=== PATIENT | female | born 1935 | race Caucasian/White ===

== ENCOUNTER → 2016-11-20 | Outpatient (CLI) | payer MEDICARE, OTHER ==
[~2016-11-20] MED LIST: AMLO5TAB2 PO; ATEN50TA80 PO; CLON0.1T PO; LEVO75TA50 PO; LISI40TA PO; NOR5T PO; [UNRECOGNIZED DRUG - CODE] PO
[2016-11-20 13:19] LABS: Urine RBC None Seen /hpf (0 - 4)
[2016-11-20 13:46] LABS: INR 1.03 (0.9-1.15); Partial Thromboplastin Time 27.7 sec (22.64-33.71); Prothrombin Time 10.6 sec (9.37-12.3)
[2016-11-20 13:48] LABS: Basophils # (auto) 0 uL; Basophils % (auto) 0.4 % (0.0-2.0); Eosinophils # (auto) 0 uL; Eosinophils % (auto) 0.1 % (0.0-7.0); Hematocrit 47.7 % (36.0-46.0); Hemoglobin 15.1 g/dL (12.2-16.2); Lymphocytes # (auto) 1.9 uL; Lymphocytes % (auto) 19.7 % (10.0-50.0); Mean Corpuscular Hemoglobin 30.7 pg (28.0-32.0); Mean Corpuscular Hgb Conc. 31.6 g/dL (32.0-36.0); Mean Corpuscular Volume 97.2 fL (80.0-100.0); Mean Platelet Volume 9.2 fL (7.4-10.4); Monocytes # (auto) 0.6 uL; Monocytes % (auto) 6.8 % (0.0-12.0); Platelet Count (auto) 331 10^3/uL (140-450); Red Cell Distribution Width 13.3 % (11.6-16.0); White Blood Cell 9.6 10^3/uL (4.4-10.8)
[2016-11-20 14:14] LABS: Potassium 4.3 mmol/L (3.5-5.1)
[2016-11-20 14:20] LABS: Urine Bilirubin Negative (Negative); Urine Blood Negative /uL (Negative); Urine Color Yellow (Yellow); Urine Glucose Normal (Normal); Urine Ketone Negative (Negative); Urine Nitrite Negative (Negative); Urine Squamous Epithelial Cell FEW /hpf (<5); Urine Urobilinogen Normal (Negative); Urine pH 7.5 (5.0-8.0)
[2016-11-20 15:16] LABS: Albumin 3.8 g/dL (3.4-5.0); BUN/Creatinine Ratio 25.6; Bilirubin, Total 0.6 mg/dL (0.2-1.0); Calcium 9.4 mg/dL (8.5-10.1); Total Protein 7.8 g/dL (6.4-8.2)
== END | disposition home or self-care (01) ==
LOC: LAB 12:57
PROVIDERS: ATTEND Orthopaedic Surgery
DX: M24.562 Contracture, left knee (principal); M24.662 Ankylosis, left knee; M22.42 Chondromalacia patellae, left knee; R79.1 Abnormal coagulation profile
CPT/HCPCS: 36415; 80053; 81001; 85025; 85610; 85730; 86850; 86900; 86901

== ENCOUNTER 2018-07-19 20:01 | Inpatient (IN) | payer MEDICARE, OTHER ==
[~2018-07-19] VITALS: Ht 149.9 cm; Wt 51.0 kg
[~2018-07-19 20:01] MED LIST changes: +AMLO5TAB13 PO; -AMLO5TAB2 PO; -ATEN50TA80 PO; -CLON0.1T PO; +HYDR-4683 PO; -NOR5T PO; -[UNRECOGNIZED DRUG - CODE] PO
[2018-07-19 21:24] LABS: Basophils # (auto) 0 uL; Eosinophils # (auto) 0 uL; Mean Corpuscular Hemoglobin 34.3 pg (28.0-32.0); Monocytes # (auto) 0.4 uL; Monocytes % (auto) 5.9 % (0.0-12.0)
[2018-07-19 21:26] LABS: Basophils % (auto) 0.5 % (0.0-2.0); Hematocrit 44.3 % (36.0-46.0); Lymphocytes # (auto) 0.9 uL; Lymphocytes % (auto) 14.1 % (10.0-50.0); Mean Corpuscular Hgb Conc. 33.9 g/dL (32.0-36.0); Mean Corpuscular Volume 101.2 fL (80.0-100.0); Neutrophils # (auto) 4.9 uL; Neutrophils % (auto) 79.5 % (37.0-80.0); Nucleated Red Blood Cells % 0.1 %; Platelet Count (auto) 224 10^3/uL (140-450); Red Blood Cells 4.37 10^6/uL (4.0-5.20); Red Cell Distribution Width 13.8 % (11.8-14.3); White Blood Cell 6.2 10^3/uL (4.4-10.8)
[2018-07-19 21:33] LABS: Alanine Aminotransferase 25 U/L (13-56); Albumin 3.6 g/dL (3.4-5.0); Alkaline Phosphatase 89 U/L (45-117); Anion Gap 4 (5-15); Aspartate Aminotransferase 23 U/L (15-37); BUN/Creatinine Ratio 24.5; Bilirubin, Total 0.6 mg/dL (0.2-1.0); Blood Urea Nitrogen 24 mg/dL (7-18); Calcium 8.6 mg/dL (8.5-10.1); Carbon Dioxide 25 mmol/L (21-32); Chloride 101 mmol/L (98-107); GFR African American 69 mL/min; GFR Non-African American 57 mL/min; Glucose 109 mg/dL (74-106); Magnesium 2.2 mg/dL (1.6-2.6); Potassium 4.4 mmol/L (3.5-5.1); Sodium 130 mmol/L (136-145); Total Protein 7.4 g/dL (6.4-8.2)
[2018-07-19] MEDS ORDERED: FUROSEMIDE 20 MG/2 ML VIAL IV ONE (23:45)
[2018-07-20] VITALS (7 sets, daily range): BP systolic 93–121; BP diastolic 54–95
[2018-07-20] MEDS ORDERED: ACETAMINOPHEN 500 MG TAB PO PRN ×2 (00:15→01:45)
[2018-07-20 00:18] LABS: Urine Bacteria NONE SEEN /hpf (None Seen); Urine Blood Negative /uL (Negative); Urine Specific Gravity 1.007 (1.001-1.035); Urine WBC 1 /hpf (0 - 5)
[2018-07-20] MEDS ORDERED: ONDANSETRON HCL 4 MG/2 ML VIAL IV PRN (01:45)
[2018-07-20] MEDS ORDERED: traMADol HCL 50 MG TAB PO PRN (01:45)
[2018-07-20] MEDS ORDERED: ASPI81TA27 PO (04:12)
[2018-07-20] MEDS: LEVOTHYROXINE SODIUM 25 MCG TAB PO SCH (06:46)
[2018-07-20 07:26] LABS: Basophils # (auto) 0 uL; Eosinophils # (auto) 0 uL; Monocytes # (auto) 0.5 uL
[2018-07-20 07:27] LABS: Basophils % (auto) 0.8 % (0.0-2.0); Eosinophils % (auto) 0.2 % (0.0-7.0); Hematocrit 42.2 % (36.0-46.0); Hemoglobin 14.4 g/dL (12.2-16.2); Lymphocytes # (auto) 1.3 uL; Lymphocytes % (auto) 26.6 % (10.0-50.0); Mean Corpuscular Hemoglobin 34.1 pg (28.0-32.0); Mean Corpuscular Volume 100.2 fL (80.0-100.0); Monocytes % (auto) 10.5 % (0.0-12.0); Neutrophils % (auto) 61.9 % (37.0-80.0); Nucleated Red Blood Cells % 0.2 %; Platelet Count (auto) 222 10^3/uL (140-450); Red Blood Cells 4.21 10^6/uL (4.0-5.20); Red Cell Distribution Width 13.6 % (11.8-14.3); White Blood Cell 4.9 10^3/uL (4.4-10.8)
[2018-07-20 07:42] LABS: Partial Thromboplastin Time 26.4 sec (23.78-33.04); Prothrombin Time 10.7 sec (9.27-12.13)
[2018-07-20 07:50] LABS: Cholesterol 199 mg/dL (< 200); HDL Cholesterol 54 mg/dL (40-59); LDL Cholesterol 123 mg/dL (< 100); Triglycerides 183 mg/dL (< 150)
[2018-07-20 07:51] LABS: Albumin 3.5 g/dL (3.4-5.0); BUN/Creatinine Ratio 21.3; Bilirubin, Total 0.8 mg/dL (0.2-1.0); Calcium 8.8 mg/dL (8.5-10.1); Potassium 3.6 mmol/L (3.5-5.1)
[2018-07-20] MEDS: ASPirin-EC 81 mg tab PO SCH (09:37)
[2018-07-20] MEDS: METOPROLOL SUCCINATE XL 50 MG TAB PO SCH (09:40)
[2018-07-20] MEDS: amLODIPine BESYLATE 5 MG TAB PO SCH (09:40)
[2018-07-20] MEDS: HCTZ 25 MG TAB PO SCH (09:42)
[2018-07-20] MEDS ORDERED: FUROSEMIDE 20 MG TAB PO ONE (13:00)
[2018-07-20] MEDS ORDERED: WARFARIN SODIUM 2.5 MG TAB PO ONE (17:00)
[2018-07-20] MEDS: RIVAROXABAN 15 MG TAB PO SCH (18:35)
[2018-07-20] MEDS ORDERED: LORazepam 2MG/ML-1ML VIAL IV PRN ×2 (21:00)
[2018-07-20] MEDS ORDERED: HYDROcodone-ACET 5/325MG TAB PO PRN (21:00)
[2018-07-20] MEDS: ATORVASTATIN 20 MG TAB PO SCH (21:08)
[2018-07-20] MEDS: LEVETIRACETAM 500 MG TAB PO SCH (21:34)
[2018-07-21 05:16] VITALS: BP 111/81
[2018-07-21] MEDS: LEVOTHYROXINE SODIUM 25 MCG TAB PO SCH (06:20)
[2018-07-21 06:34] LABS: Basophils # (auto) 0.1 uL; Monocytes # (auto) 0.6 uL; Neutrophils # (auto) 3.4 uL
[2018-07-21 06:36] LABS: Basophils % (auto) 1.5 % (0.0-2.0); Eosinophils # (auto) 0 uL; Eosinophils % (auto) 0.7 % (0.0-7.0); Hematocrit 42.2 % (36.0-46.0); Hemoglobin 14.8 g/dL (12.2-16.2); Lymphocytes # (auto) 1.3 uL; Lymphocytes % (auto) 24.7 % (10.0-50.0); Mean Corpuscular Hgb Conc. 35.1 g/dL (32.0-36.0); Mean Corpuscular Volume 99.4 fL (80.0-100.0); Monocytes % (auto) 10.6 % (0.0-12.0); Neutrophils % (auto) 62.5 % (37.0-80.0); Nucleated Red Blood Cells % 0.4 %; Platelet Count (auto) 232 10^3/uL (140-450); Red Blood Cells 4.25 10^6/uL (4.0-5.20); Red Cell Distribution Width 13.6 % (11.8-14.3); White Blood Cell 5.4 10^3/uL (4.4-10.8)
[2018-07-21 06:39] LABS: Mean Corpuscular Hemoglobin 34.6 pg (28.0-32.0)
[2018-07-21 06:44] LABS: INR 1.24 (0.9-1.15); Partial Thromboplastin Time 36.2 sec (23.78-33.04); Prothrombin Time 13.1 sec (9.27-12.13)
[2018-07-21 06:53] LABS: Albumin 3.1 g/dL (3.4-5.0); BUN/Creatinine Ratio 26.4; Bilirubin, Total 0.9 mg/dL (0.2-1.0); Calcium 8.4 mg/dL (8.5-10.1); Total Protein 6.7 g/dL (6.4-8.2)
[2018-07-21 06:56] LABS: Potassium 3.8 mmol/L (3.5-5.1)
[2018-07-21 09:00] VITALS: BP 149/80
[2018-07-21] MEDS: ASPirin-EC 81 mg tab PO SCH (09:54)
[2018-07-21] MEDS: FUROSEMIDE 20 MG TAB PO SCH (09:55)
[2018-07-21] MEDS: POTASSIUM CHL 10 Meq TABLET PO SCH (09:55)
[2018-07-21] MEDS: METOPROLOL SUCCINATE XL 50 MG TAB PO SCH (09:56)
[2018-07-21] MEDS: HCTZ 25 MG TAB PO SCH (09:56)
[2018-07-21] MEDS: LEVETIRACETAM 500 MG TAB PO SCH ×2 (09:56→22:32)
[2018-07-21] MEDS: amLODIPine BESYLATE 5 MG TAB PO SCH (09:57)
[2018-07-21 13:00] VITALS: BP 110/82
[2018-07-21 17:00] VITALS: BP 105/68
[2018-07-21] MEDS: RIVAROXABAN 15 MG TAB PO SCH (18:31)
[2018-07-21 21:52] VITALS: BP 102/78
[2018-07-21] MEDS: ATORVASTATIN 20 MG TAB PO SCH (22:32)
[2018-07-22 05:21] VITALS: BP 106/72
[2018-07-22 06:29] LABS: Basophils # (auto) 0 uL; Eosinophils # (auto) 0 uL; Eosinophils % (auto) 0.5 % (0.0-7.0); Red Cell Distribution Width 13.3 % (11.8-14.3)
[2018-07-22 06:30] LABS: Basophils % (auto) 0.9 % (0.0-2.0); Hematocrit 43.1 % (36.0-46.0); Lymphocytes # (auto) 1.4 uL; Lymphocytes % (auto) 26.4 % (10.0-50.0); Mean Corpuscular Hemoglobin 34.5 pg (28.0-32.0); Mean Corpuscular Hgb Conc. 34.7 g/dL (32.0-36.0); Mean Corpuscular Volume 99.5 fL (80.0-100.0); Monocytes # (auto) 0.6 uL; Monocytes % (auto) 11.8 % (0.0-12.0); Neutrophils # (auto) 3.2 uL; Neutrophils % (auto) 60.4 % (37.0-80.0); Platelet Count (auto) 226 10^3/uL (140-450); Red Blood Cells 4.33 10^6/uL (4.0-5.20); White Blood Cell 5.3 10^3/uL (4.4-10.8)
[2018-07-22] MEDS: LEVOTHYROXINE SODIUM 25 MCG TAB PO SCH (06:33)
[2018-07-22 06:53] LABS: Albumin 3.1 g/dL (3.4-5.0); Calcium 8.6 mg/dL (8.5-10.1); Potassium 3.3 mmol/L (3.5-5.1)
[2018-07-22 07:02] LABS: BUN/Creatinine Ratio 34.7; Bilirubin, Total 0.8 mg/dL (0.2-1.0); Total Protein 6.7 g/dL (6.4-8.2)
[2018-07-22 09:00] VITALS: BP 110/80
[2018-07-22] MEDS: amLODIPine BESYLATE 5 MG TAB PO SCH (09:58)
[2018-07-22] MEDS: POTASSIUM CHL 10 Meq TABLET PO SCH (09:58)
[2018-07-22] MEDS: LEVETIRACETAM 500 MG TAB PO SCH (09:58)
[2018-07-22] MEDS: HCTZ 25 MG TAB PO SCH (09:59)
[2018-07-22] MEDS: ASPirin-EC 81 mg tab PO SCH (09:59)
[2018-07-22] MEDS: FUROSEMIDE 20 MG TAB PO SCH (09:59)
[2018-07-22] MEDS: METOPROLOL SUCCINATE XL 50 MG TAB PO SCH (10:00)
[2018-07-22 15:20] VITALS: BP 110/80
== END 2018-07-22 16:00 | disposition home or self-care (01) | DRG 292 ==
LOC: ER 20:03 → TELE 20:04 → TELE-WESTW 07-20 02:17
PROVIDERS: ADMIT Nurse Practitioner Family; ATTEND Family Medicine
DX: I11.0 Hypertensive heart disease with heart failure (principal); I48.92 Unspecified atrial flutter; E87.1 Hypo-osmolality and hyponatremia; G40.89 Other seizures; R44.2 Other hallucinations; G45.9 Transient cerebral ischemic attack, unspecified; I50.41 Acute combined systolic (congestive) and diastolic (congestive) heart failure; R40.4 Transient alteration of awareness; G43.909 Migraine, unspecified, not intractable, without status migrainosus; Z88.6 Allergy status to analgesic agent; Z88.3 Allergy status to other anti-infective agents; E78.00 Pure hypercholesterolemia, unspecified; E89.0 Postprocedural hypothyroidism; I48.91 Unspecified atrial fibrillation; I50.9 Heart failure, unspecified; M19.90 Unspecified osteoarthritis, unspecified site; Z82.62 Family history of osteoporosis; N28.9 Disorder of kidney and ureter, unspecified; R79.1 Abnormal coagulation profile; Z80.7 Family history of other malignant neoplasms of lymphoid, hematopoietic and related tissues; Z82.49 Family history of ischemic heart disease and other diseases of the circulatory system; Z83.3 Family history of diabetes mellitus; Z86.73 Personal history of transient ischemic attack (TIA), and cerebral infarction without residual deficits; Z96.659 Presence of unspecified artificial knee joint; Z79.82 Long term (current) use of aspirin; Z79.899 Other long term (current) drug therapy
CPT/HCPCS: 36415; 70450; 70551; 71045; 72125; 80053; 80061; 81001; 83735; 83880; 84443; 84484; 85025; 85379; 85610; 85730; 93306; 93886; 93970; 94761; 95819; 96374

== ENCOUNTER 2018-09-30 17:52 | Inpatient (IN) | payer MEDICARE, OTHER ==
[~2018-09-30] VITALS: Ht 149.9 cm; Wt 47.8 kg
[~2018-09-30 17:52] MED LIST changes: +ASPI81TA27 PO; -HYDR-4683 PO; -LISI40TA PO
[2018-09-30] MEDS ORDERED: IPRATROPIUM BROM 0.5 MG/2.5ML INH SOL NEB ONE (18:00)
[2018-09-30] MEDS ORDERED: ALBUTEROL SULF 2.5 MG/0.5ML(0.5%) NEB SOLN NEB ONE ×2 (18:00→21:30)
[2018-09-30 18:19] LABS: Eosinophils # (auto) 0 uL; Eosinophils % (auto) 0.5 % (0.0-7.0); Lymphocytes # (auto) 0.6 uL; Neutrophils # (auto) 5.6 uL; Red Cell Distribution Width 12.6 % (11.8-14.3)
[2018-09-30 18:20] LABS: Basophils # (auto) 0 uL; Basophils % (auto) 0.7 % (0.0-2.0); Hematocrit 43.5 % (36.0-46.0); Hemoglobin 14.8 g/dL (12.2-16.2); Lymphocytes % (auto) 8.2 % (10.0-50.0); Mean Corpuscular Hemoglobin 34.6 pg (28.0-32.0); Mean Corpuscular Volume 101.7 fL (80.0-100.0); Monocytes # (auto) 0.7 uL; Monocytes % (auto) 9.8 % (0.0-12.0); Neutrophils % (auto) 80.8 % (37.0-80.0); Platelet Count (auto) 223 10^3/uL (140-450); Red Blood Cells 4.28 10^6/uL (4.0-5.20)
[2018-09-30 18:33] LABS: Alanine Aminotransferase 28 U/L (13-56); Albumin 3.3 g/dL (3.4-5.0); Anion Gap 10 (5-15); Aspartate Aminotransferase 24 U/L (15-37); BUN/Creatinine Ratio 17.4; Blood Urea Nitrogen 16 mg/dL (7-18); Calcium 8.7 mg/dL (8.5-10.1); Carbon Dioxide 25 mmol/L (21-32); Chloride 98 mmol/L (98-107); GFR African American 75 mL/min; GFR Non-African American 62 mL/min; Glucose 116 mg/dL (74-106); Potassium 4.3 mmol/L (3.5-5.1); Sodium 133 mmol/L (136-145)
[2018-09-30 18:38] LABS: Alkaline Phosphatase 92 U/L (45-117); Bilirubin, Total 0.7 mg/dL (0.2-1.0); Total Protein 7.5 g/dL (6.4-8.2)
[2018-09-30] MEDS ORDERED: methylPREDNISolone SOD SUCC 125 MG/2 ML VL IV ONE (19:00)
[2018-09-30] MEDS ORDERED: SODIUM CHLORIDE 0.9% 1,000 ML IV ONE (19:00)
[2018-09-30] MEDS ORDERED: LEVOFLOXACIN 500MG 100 ML IV ONE (21:00)
[2018-09-30] MEDS ORDERED: ONDANSETRON HCL 4 MG/2 ML VIAL IV PRN (21:30)
[2018-09-30] MEDS ORDERED: ACETAMINOPHEN 325 MG TAB PO PRN (21:30)
[2018-09-30] MEDS: IPRATROPIUM BROM 0.5 MG/2.5ML INH SOL NEB PRN (21:56)
[2018-09-30] MEDS: ALBUTEROL SULF 2.5 MG/0.5ML(0.5%) NEB SOLN NEB PRN (21:57)
[2018-09-30 23:10] VITALS: BP 128/87
[2018-09-30] MEDS: ATORVASTATIN 20 MG TAB PO SCH (23:47)
[2018-09-30] MEDS: methylPREDNISolone SOD SUCC 125 MG/2 ML VL IV SCH (23:48)
[2018-09-30] MEDS: FAMOTIDINE 20 MG TAB PO SCH (23:48)
[2018-10-01] VITALS (9 sets, daily range): BP systolic 102–129; BP diastolic 65–96
[2018-10-01] MEDS ORDERED: LOSA-46 PO (00:49)
[2018-10-01] MEDS ORDERED: RIV15T PO (00:49)
[2018-10-01] MEDS ORDERED: METO-169 PO (00:49)
[2018-10-01] MEDS ORDERED: FURO20TA3 PO (00:49)
[2018-10-01] MEDS: IPRATROPIUM BROM 0.5 MG/2.5ML INH SOL NEB PRN ×3 (04:55→18:46)
[2018-10-01] MEDS: ALBUTEROL SULF 2.5 MG/0.5ML(0.5%) NEB SOLN NEB PRN ×3 (04:56→18:46)
[2018-10-01 05:21] LABS: Basophils # (auto) 0 uL; Basophils % (auto) 0.5 % (0.0-2.0); Eosinophils # (auto) 0 uL; Eosinophils % (auto) 0.1 % (0.0-7.0); Hematocrit 39.5 % (36.0-46.0); Hemoglobin 13.3 g/dL (12.2-16.2); Lymphocytes # (auto) 0.3 uL; Lymphocytes % (auto) 4.5 % (10.0-50.0); Mean Corpuscular Hgb Conc. 33.7 g/dL (32.0-36.0); Monocytes # (auto) 0.1 uL; Monocytes % (auto) 1.6 % (0.0-12.0); Neutrophils # (auto) 5.7 uL; Neutrophils % (auto) 93.3 % (37.0-80.0); Nucleated Red Blood Cells % 0.1 %; Platelet Count (auto) 202 10^3/uL (140-450); Red Blood Cells 3.91 10^6/uL (4.0-5.20); Red Cell Distribution Width 12.5 % (11.8-14.3); White Blood Cell 6.1 10^3/uL (4.4-10.8)
[2018-10-01 05:38] LABS: Calcium 8.2 mg/dL (8.5-10.1); Potassium 3.6 mmol/L (3.5-5.1)
[2018-10-01 05:41] LABS: BUN/Creatinine Ratio 16.3; Bilirubin, Total 0.8 mg/dL (0.2-1.0); Total Protein 6.7 g/dL (6.4-8.2)
[2018-10-01] MEDS: LEVOTHYROXINE SODIUM 25 MCG TAB PO SCH (06:24)
[2018-10-01] MEDS ORDERED: FUROSEMIDE 20 MG TAB PO SCH (10:00)
[2018-10-01] MEDS: amLODIPine BESYLATE 5 MG TAB PO SCH (10:00)
[2018-10-01] MEDS: LOSARTAN POTASSIUM 50 MG TAB PO SCH (10:00)
[2018-10-01] MEDS ORDERED: ENOXAPARIN SOD 30 MG/0.3 ML SYRINGE SC SCH (10:00)
[2018-10-01] MEDS: FAMOTIDINE 20 MG TAB PO SCH (10:52)
[2018-10-01] MEDS: LEVOFLOXACIN 250MG 50 ML IV SCH (10:53)
[2018-10-01] MEDS: methylPREDNISolone SOD SUCC 125 MG/2 ML VL IV SCH ×2 (10:53→22:06)
[2018-10-01] MEDS: RIVAROXABAN 15 MG TAB PO SCH (17:08)
[2018-10-01] MEDS: ATORVASTATIN 20 MG TAB PO SCH ×2 (22:00→22:06)
[2018-10-01] MEDS: TEMAZEPAM 15 MG CAP PO PRN (22:21)
[2018-10-02 05:28] VITALS: BP 126/89
[2018-10-02] MEDS: LEVOTHYROXINE SODIUM 25 MCG TAB PO SCH (06:59)
[2018-10-02 09:04] VITALS: BP 135/91
[2018-10-02] MEDS: IPRATROPIUM BROM 0.5 MG/2.5ML INH SOL NEB PRN (09:56)
[2018-10-02] MEDS: ALBUTEROL SULF 2.5 MG/0.5ML(0.5%) NEB SOLN NEB PRN (09:56)
[2018-10-02] MEDS ORDERED: FUROSEMIDE 40 MG/4 ML VIAL IV ONE (10:15)
[2018-10-02] MEDS: FAMOTIDINE 20 MG TAB PO SCH (10:22)
[2018-10-02] MEDS: amLODIPine BESYLATE 5 MG TAB PO SCH (10:22)
[2018-10-02] MEDS: LOSARTAN POTASSIUM 50 MG TAB PO SCH (10:23)
[2018-10-02] MEDS: methylPREDNISolone SOD SUCC 125 MG/2 ML VL IV SCH ×2 (10:25→21:18)
[2018-10-02] MEDS: LEVOFLOXACIN 250MG 50 ML IV SCH (10:31)
[2018-10-02] MEDS ORDERED: SODIUM CHLORIDE 0.9 % NEB SOLN 3ML NEB ONE (10:52)
[2018-10-02] MEDS ORDERED: SUMAtriptan SUCCINATE 25 MG TAB PO ONE (11:00)
[2018-10-02 13:00] VITALS: BP 125/84
[2018-10-02] MEDS: IPRATROPIUM BROM 0.5 MG/2.5ML INH SOL NEB SCH ×3 (14:13→21:59)
[2018-10-02] MEDS: ALBUTEROL SULF 2.5 MG/0.5ML(0.5%) NEB SOLN NEB SCH ×3 (14:13→21:59)
[2018-10-02 17:04] VITALS: BP 125/88
[2018-10-02] MEDS: RIVAROXABAN 15 MG TAB PO SCH (19:13)
[2018-10-02] MEDS: ATORVASTATIN 20 MG TAB PO SCH (21:18)
[2018-10-02] MEDS: TEMAZEPAM 15 MG CAP PO PRN (21:19)
[2018-10-02 22:18] VITALS: BP 138/98
[2018-10-03] MEDS: ALBUTEROL SULF 2.5 MG/0.5ML(0.5%) NEB SOLN NEB SCH ×6 (02:24→22:33)
[2018-10-03] MEDS: IPRATROPIUM BROM 0.5 MG/2.5ML INH SOL NEB SCH ×6 (02:24→22:33)
[2018-10-03 05:13] VITALS: BP 104/67
[2018-10-03] MEDS: LEVOTHYROXINE SODIUM 25 MCG TAB PO SCH (06:07)
[2018-10-03 09:00] VITALS: BP 107/83
[2018-10-03] MEDS: FUROSEMIDE 40 MG/4 ML VIAL IV SCH (10:00)
[2018-10-03] MEDS: FAMOTIDINE 20 MG TAB PO SCH (10:39)
[2018-10-03] MEDS: LEVOFLOXACIN 250MG 50 ML IV SCH (10:47)
[2018-10-03] MEDS: methylPREDNISolone SOD SUCC 125 MG/2 ML VL IV SCH ×2 (10:47→21:24)
[2018-10-03] MEDS: LORATADINE 10 MG TAB PO SCH (12:14)
[2018-10-03] MEDS: BUDESONIDE (INHALATION) 0.5 MG/2 ML NEB NEB SCH ×2 (12:16→22:33)
[2018-10-03] MEDS: LOSARTAN POTASSIUM 50 MG TAB PO SCH (12:18)
[2018-10-03] MEDS: amLODIPine BESYLATE 5 MG TAB PO SCH (12:19)
[2018-10-03 13:00] VITALS: BP 136/90
[2018-10-03] MEDS: guaiFENesin-DM 100/10mg/5ml SYR PO PRN (14:25)
[2018-10-03] MEDS ORDERED: SUMAtriptan SUCCINATE 25 MG TAB PO ONE (14:30)
[2018-10-03 17:00] VITALS: BP 144/83
[2018-10-03] MEDS: RIVAROXABAN 15 MG TAB PO SCH (19:18)
[2018-10-03] MEDS: TEMAZEPAM 15 MG CAP PO PRN (21:24)
[2018-10-03] MEDS: ATORVASTATIN 20 MG TAB PO SCH (21:24)
[2018-10-03 22:00] VITALS: BP 122/80
[2018-10-04] MEDS: ALBUTEROL SULF 2.5 MG/0.5ML(0.5%) NEB SOLN NEB SCH ×4 (02:00→14:31)
[2018-10-04] MEDS: IPRATROPIUM BROM 0.5 MG/2.5ML INH SOL NEB SCH ×4 (02:00→14:31)
[2018-10-04 05:00] VITALS: BP 133/85
[2018-10-04] MEDS: LEVOTHYROXINE SODIUM 25 MCG TAB PO SCH (06:07)
[2018-10-04 09:27] VITALS: BP 131/81
[2018-10-04] MEDS: FUROSEMIDE 40 MG/4 ML VIAL IV SCH (09:39)
[2018-10-04] MEDS: FAMOTIDINE 20 MG TAB PO SCH (09:40)
[2018-10-04] MEDS: LORATADINE 10 MG TAB PO SCH (09:41)
[2018-10-04] MEDS: LOSARTAN POTASSIUM 50 MG TAB PO SCH (09:41)
[2018-10-04] MEDS: amLODIPine BESYLATE 5 MG TAB PO SCH (09:42)
[2018-10-04] MEDS: guaiFENesin-DM 100/10mg/5ml SYR PO PRN (09:52)
[2018-10-04] MEDS: methylPREDNISolone SOD SUCC 125 MG/2 ML VL IV SCH (10:00)
[2018-10-04] MEDS: BUDESONIDE (INHALATION) 0.5 MG/2 ML NEB NEB SCH (10:22)
[2018-10-04 12:42] VITALS: BP 109/80
[2018-10-04 13:01] VITALS: BP 111/82
[2018-10-04 14:40] VITALS: BP 109/80
[2018-10-04] MEDS: LEVOFLOXACIN 250MG 50 ML IV SCH (15:06)
[2018-10-04 17:05] VITALS: BP 123/70
== END 2018-10-04 17:30 | disposition home or self-care (01) | DRG 190 ==
LOC: ER 17:58 → OVERFLOW 21:31 → WEST WING 22:43
PROVIDERS: ADMIT Nurse Practitioner; ATTEND Family Medicine
DX: J44.0 Chronic obstructive pulmonary disease with (acute) lower respiratory infection (principal); I50.23 Acute on chronic systolic (congestive) heart failure; J45.901 Unspecified asthma with (acute) exacerbation; M48.50XA Collapsed vertebra, not elsewhere classified, site unspecified, initial encounter for fracture; J20.9 Acute bronchitis, unspecified; R06.03 Acute respiratory distress; I11.0 Hypertensive heart disease with heart failure; E78.00 Pure hypercholesterolemia, unspecified; E78.5 Hyperlipidemia, unspecified; E89.0 Postprocedural hypothyroidism; I48.0 Paroxysmal atrial fibrillation; M19.90 Unspecified osteoarthritis, unspecified site; Z82.61 Family history of arthritis; Z83.3 Family history of diabetes mellitus; Z82.49 Family history of ischemic heart disease and other diseases of the circulatory system; Z86.73 Personal history of transient ischemic attack (TIA), and cerebral infarction without residual deficits; Z79.899 Other long term (current) drug therapy
CPT/HCPCS: 36415; 36600; 71046; 80053; 82805; 83880; 84484; 85025; 85379; 87804; 93005; 94640; 96374; G0378; J1956

== ENCOUNTER 2019-01-12 15:07 | Emergency (ER) | payer MEDICARE, OTHER ==
[~2019-01-12] VITALS: Ht 149.9 cm; Wt 45.8 kg
[~2019-01-12 15:07] MED LIST changes: -ASPI81TA27 PO; +FURO20TA3 PO; +LOSA-46 PO; +METO-169 PO; +RIV15T PO
[2019-01-12 15:18] VITALS: BP 113/64
[2019-01-12] MEDS ORDERED: KETOROLAC TROMETH 30 MG/ML 1ML VIAL IM ONE (16:00)
[2019-01-12] MEDS ORDERED: HYDROcodone-ACET 5/325MG TAB PO ONE (16:30)
[2019-01-15] MEDS ORDERED: DICL50TA4 PO (05:16)
[2019-01-15] MEDS ORDERED: BACL10TA PO (05:16)
[2019-01-15] MEDS ORDERED: HYDR-4296 PO (05:16)
[2019-01-16] MEDS ORDERED: ALPR0.5T7 PO (00:15)
[2019-01-16] MEDS ORDERED: BUDE0.5S IN (00:15)
[2019-01-16] MEDS ORDERED: BUDE0.253 IN (00:15)
[2019-01-16] MEDS ORDERED: ALBUAER3 IN (00:15)
[2019-01-16] MEDS ORDERED: BUTA1CAP6 PO (00:16)
== END 2019-01-12 16:59 | disposition home or self-care (01) ==
LOC: ER 15:17
DX: G43.909 Migraine, unspecified, not intractable, without status migrainosus (principal); I11.0 Hypertensive heart disease with heart failure; I50.9 Heart failure, unspecified; M19.90 Unspecified osteoarthritis, unspecified site; Z86.39 Personal history of other endocrine, nutritional and metabolic disease; Z86.73 Personal history of transient ischemic attack (TIA), and cerebral infarction without residual deficits
CPT/HCPCS: 70450; 96372; 99284; J1885

== ENCOUNTER 2019-03-08 06:04 | Emergency (ER) | payer MEDICARE, BC ==
[~2019-03-08] VITALS: Ht 149.9 cm; Wt 42.2 kg
[~2019-03-08 06:04] MED LIST changes: +ALBUAER3 IN; +ALPR0.5T7 PO; +BACL10TA PO; +BUDE0.253 IN; +BUDE0.5S IN; +BUTA1CAP6 PO; +DICL50TA4 PO; +HYDR-4296 PO
[2019-03-08] MEDS ORDERED: SODIUM CHLORIDE 0.9% 1,000 ML IV ONE (07:17)
[2019-03-08 07:43] LABS: Eosinophils # (auto) 0 uL; Eosinophils % (auto) 0.1 % (0.0-7.0); Monocytes # (auto) 0.6 uL; Monocytes % (auto) 9.3 % (0.0-12.0)
[2019-03-08 07:44] LABS: Basophils # (auto) 0.1 uL; Basophils % (auto) 1.2 % (0.0-2.0); Hematocrit 48.1 % (36.0-46.0); Hemoglobin 16.1 g/dL (12.2-16.2); Lymphocytes % (auto) 15.7 % (10.0-50.0); Mean Corpuscular Hemoglobin 33.5 pg (28.0-32.0); Mean Corpuscular Hgb Conc. 33.5 g/dL (32.0-36.0); Mean Corpuscular Volume 99.9 fL (80.0-100.0); Neutrophils # (auto) 4.7 uL; Neutrophils % (auto) 73.7 % (37.0-80.0); Nucleated Red Blood Cells % 0.2 %; Platelet Count (auto) 256 10^3/uL (140-450); Red Blood Cells 4.81 10^6/uL (4.0-5.20); White Blood Cell 6.3 10^3/uL (4.4-10.8)
[2019-03-08 08:00] LABS: Albumin 3.7 g/dL (3.4-5.0); Calcium 8.4 mg/dL (8.5-10.1); Magnesium 2.5 mg/dL (1.6-2.6); Potassium 3.9 mmol/L (3.5-5.1)
[2019-03-08 08:05] LABS: BUN/Creatinine Ratio 25.5; Bilirubin, Total 0.7 mg/dL (0.2-1.0); Total Protein 6.7 g/dL (6.4-8.2)
[2019-03-08 09:39] LABS: Urine Bacteria NONE SEEN /hpf (None Seen); Urine Blood Negative /uL (Negative); Urine Specific Gravity 1.005 (1.001-1.035); Urine WBC 1 /hpf (0 - 5)
[2019-03-08 10:29] VITALS: BP 155/81
== END 2019-03-08 11:47 | disposition home or self-care (01) ==
LOC: ER 06:09
DX: M47.892 Other spondylosis, cervical region (principal); M62.838 Other muscle spasm; I48.2 Chronic atrial fibrillation; I11.0 Hypertensive heart disease with heart failure; I50.9 Heart failure, unspecified; M19.90 Unspecified osteoarthritis, unspecified site; Z86.73 Personal history of transient ischemic attack (TIA), and cerebral infarction without residual deficits; Z88.6 Allergy status to analgesic agent; Z91.041 Radiographic dye allergy status; Z79.899 Other long term (current) drug therapy
CPT/HCPCS: 36415; 71046; 72125; 80053; 81001; 83735; 84443; 85025; 93005; 99284; J7030

== ENCOUNTER 2019-04-03 17:46 | Inpatient (IN) | payer MEDICARE, OTHER, BC | END 2019-04-07 18:50 | LOC: OVERFLOW 04-04 02:30 → CENTRAL 04-06 16:32 → ER 17:46 | DX: R42 Dizziness and giddiness (principal); I13.0 Hypertensive heart and chronic kidney disease with heart failure and stage 1 through stage 4 chronic kidney disease, or unspecified chronic kidney disease; I48.92 Unspecified atrial flutter; I50.42 Chronic combined systolic (congestive) and diastolic (congestive) heart failure; J98.11 Atelectasis; M48.50XA Collapsed vertebra, not elsewhere classified, site unspecified, initial encounter for fracture; I11.0 Hypertensive heart disease with heart failure; E11.22 Type 2 diabetes mellitus with diabetic chronic kidney disease; E11.65 Type 2 diabetes mellitus with hyperglycemia; E86.9 Volume depletion, unspecified; I48.91 Unspecified atrial fibrillation; N18.2 Chronic kidney disease, stage 2 (mild); E03.9 Hypothyroidism, unspecified; I27.20 Pulmonary hypertension, unspecified ==

== ENCOUNTER 2019-09-21 12:07 | Inpatient (IN) | payer MEDICARE, BC ==
[~2019-09-21] VITALS: Ht 152.4 cm; Wt 47.0 kg
[~2019-09-21 12:07] MED LIST changes: -AMLO5TAB13 PO; +AMLO5TAB15 PO; -LOSA-46 PO; +LOSA-69 PO
[2019-09-21] MEDS ORDERED: FUROSEMIDE 40 MG/4 ML VIAL IV ONE (12:45)
[2019-09-21 14:44] LABS: Basophils # (auto) 0 uL; Basophils % (auto) 0.9 % (0.0-2.0); Eosinophils # (auto) 0 uL; Eosinophils % (auto) 0.3 % (0.0-7.0); Hematocrit 45.2 % (36.0-46.0); Hemoglobin 14.8 g/dL (12.2-16.2); Lymphocytes # (auto) 0.6 uL; Lymphocytes % (auto) 12.3 % (10.0-50.0); Mean Corpuscular Hemoglobin 31.5 pg (28.0-32.0); Mean Corpuscular Hgb Conc. 32.8 g/dL (32.0-36.0); Monocytes # (auto) 0.4 uL; Monocytes % (auto) 8.8 % (0.0-12.0); Neutrophils # (auto) 3.9 uL; Neutrophils % (auto) 77.7 % (37.0-80.0); Nucleated Red Blood Cells % 0.1 %; Platelet Count (auto) 160 10^3/uL (140-450); Red Blood Cells 4.71 10^6/uL (4.0-5.20); Red Cell Distribution Width 16.4 % (11.8-14.3); White Blood Cell 5.1 10^3/uL (4.4-10.8)
[2019-09-21 15:03] LABS: Chloride 106 mmol/L (98-107); Sodium 141 mmol/L (136-145)
[2019-09-21 15:11] LABS: Alanine Aminotransferase 38 U/L (13-56); Albumin 3.1 g/dL (3.4-5.0); Anion Gap 11 (5-15); Aspartate Aminotransferase 38 U/L (15-37); BUN/Creatinine Ratio 34.1; Blood Urea Nitrogen 47 mg/dL (7-18); Calcium 8.3 mg/dL (8.5-10.1); Carbon Dioxide 24 mmol/L (21-32); GFR African American 47 mL/min; GFR Non-African American 39 mL/min; Glucose 99 mg/dL (74-106); Magnesium 2.9 mg/dL (1.6-2.6)
[2019-09-21 15:13] LABS: Alkaline Phosphatase 125 U/L (45-117); Total Protein 6.8 g/dL (6.4-8.2)
[2019-09-21] MEDS ORDERED: FUROSEMIDE 20 MG/2 ML VIAL IV ONE (17:00)
[2019-09-21] MEDS ORDERED: ALBUTEROL SULF 2.5 MG/0.5ML(0.5%) NEB SOLN NEB PRN (17:15)
[2019-09-21] MEDS ORDERED: NITROGLYCERIN 0.4 MG SL TAB SL PRN (17:15)
[2019-09-21] MEDS ORDERED: LACTULOSE 20Gm/30ML SOLN PO PRN (17:15)
[2019-09-21] MEDS ORDERED: ACETAMINOPHEN 500 MG TAB PO PRN (17:15)
[2019-09-21] MEDS ORDERED: TEMAZEPAM 15 MG CAP PO PRN (17:15)
[2019-09-21] MEDS ORDERED: traMADol HCL 50 MG TAB PO PRN (17:15)
[2019-09-21] MEDS ORDERED: MORPHINE SULF INJ 2 MG/ML SYRINGE 1ML IV PRN (17:15)
[2019-09-21] MEDS ORDERED: OSELTAMIVIR 75 MG CAP PO ONE (17:15)
[2019-09-21] MEDS ORDERED: ONDANSETRON HCL 4 MG/2 ML VIAL IV PRN (17:15)
[2019-09-21 17:21] VITALS: BP 120/75
[2019-09-21] MEDS: IPRATROPIUM BROM 0.5 MG/2.5ML INH SOL NEB SCH (17:58)
[2019-09-21] MEDS: ALBUTEROL SULF 2.5 MG/0.5ML(0.5%) NEB SOLN NEB SCH (17:58)
[2019-09-21 20:00] VITALS: BP 116/76
--- NOTE | 2019-09-21 20:00 | NUR ---
Telemetry admit from ER KITCHEN,SHAWN admitted to Telemetry unit after SBAR received. Patient oriented to Shakira lizama RN, unit, room, bed, and unit policies regarding patient care and visiting hours. Patient now on continuous telemetry monitoring, tele box # 17 and telemetry reading on arrival to unit is AFIB . Patient placed on bedside oxygen, weighed by bedscale and encouraged to call if they need something. All questions and concerns addressed, patient verbalized understanding.
--- NOTE | 2019-09-21 20:30 | NUR ---
IV insertion IV access obtained, via clean sterile technique by inserting 22 gauge catheter at LEFT WRIST after 1 attempt(s). IV secured properly. No trauma to site. Patient tolerated well. PATIENT ACCIDENTALLY PULLED OUT IV TO RIGHT FOREARM. CATHETER FULLY INTACT BEFORE DISCARDED TO SHARPS.
--- NOTE | 2019-09-21 20:40 | NUR ---
CALLED LAB TO RECEIVED RAPID INFLUENZA SWAB, PROCESS CHEESE COOKER ON PHONE STATED "WE DON'T HAVE ANY SWABS RIGHT NOW". UNABLE TO DO RAPID INFLUENZA
[2019-09-21 22:00] VITALS: BP 116/75
[2019-09-21] MEDS: ALPRAZolam 0.5 MG TAB PO SCH (22:00)
[2019-09-21] MEDS: BACLOFEN 10 MG TAB PO SCH (22:00)
[2019-09-21] MEDS ORDERED: OSELTAMIVIR 75 MG CAP PO SCH (22:00)
[2019-09-21] MEDS: hydrALAZINE HCL 25 MG TAB PO SCH (22:00)
[2019-09-21] MEDS: FAMOTIDINE 20 MG TAB PO SCH (22:26)
[2019-09-21] MEDS: SODIUM CHLOR 0.9% PF (SALINE LOCK) 10ML VIAL/SYR IV SCH (22:29)
--- NOTE | 2019-09-22 00:07 | NUR ---
CALLED LAB SPOKE WITH MIKE TO MAKE SURE PATIENTS 0000 TROPONIN GETS DRAWN MODEL MAKER FIREARMS ON THEIR WAY
[2019-09-22 05:00] VITALS: BP 108/58
--- NOTE | 2019-09-22 05:18 | NUR ---
RAPID INFLUENZA CALLED LAB TO SEE WHEN RAPID INFLUENZA SWABS WILL BE AVAILABLE AGAIN, PER NATURAL SCIENCES PROFESSOR DAYA, "WE WON'T KNOW UNTIL MORNING SHIFT AT 8". STILL UNABLE TO OBTAIN RAPID INFLUENZA AT THIS TIME
--- NOTE | 2019-09-22 05:43 | NUR ---
RAPID INFLUENZA LAB ABLE TO FIND ONE SWAB. RAPID INFLUENZA OBTAINED AND SENT TO LAB
[2019-09-22] MEDS: SODIUM CHLOR 0.9% PF (SALINE LOCK) 10ML VIAL/SYR IV SCH ×3 (05:47→21:23)
[2019-09-22] MEDS: ALPRAZolam 0.5 MG TAB PO SCH ×4 (05:47→21:24)
--- NOTE | 2019-09-22 05:51 | NUR ---
MED REFUSAL BROUGHT XANAX TO PATIENT ROOM, SCANNED PATIENT AND XANAX AND EDUCATED PATIENT ON MEDICATION PURPOSE. OPEN XANAX PACKET TO GIVE TO PATIENT AND THEN PATIENT CHANGED HER MIND AND STATED, "WELL I'M NOT ANXIOUS SO I DON'T WANT IT". WILL WASTE MEDICATION IN MED ROOM WITH SECOND RN
[2019-09-22] MEDS: ALBUTEROL SULF 2.5 MG/0.5ML(0.5%) NEB SOLN NEB SCH ×5 (06:12→23:54)
[2019-09-22] MEDS: IPRATROPIUM BROM 0.5 MG/2.5ML INH SOL NEB SCH ×5 (06:12→23:54)
--- NOTE | 2019-09-22 06:22 | NUR ---
EKG EKG DONE ORDERED BY MD LARRY. PLACED IN HARD CHART
[2019-09-22 06:24] LABS: Urine Bacteria NONE SEEN /hpf (None Seen); Urine Blood Negative /uL (Negative); Urine Specific Gravity 1.009 (1.001-1.035); Urine WBC <1 /hpf (0 - 5)
--- NOTE | 2019-09-22 06:59 | NUR ---
CLOSING PATIENT RESTING IN BED. NO S/S OF DISTRESS NOTED. FALL PRECAUTIONS IN PLACE, CALL LIGHT WITHIN REACH. WILL ENDORSE CARE TO AM SHIFT RN
[2019-09-22 07:08] LABS: Potassium 4.1 mmol/L (3.5-5.1)
[2019-09-22 07:21] LABS: Albumin 3.2 g/dL (3.4-5.0); BUN/Creatinine Ratio 34.6; Bilirubin, Total 1.1 mg/dL (0.2-1.0); Calcium 8.3 mg/dL (8.5-10.1); Total Protein 6.1 g/dL (6.4-8.2)
--- NOTE | 2019-09-22 07:30 | NUR ---
Opening Shift Note RECEIVED REPORT FROM NOC RN. Assumed care of patient, awake and alert. PATIENT ON OXYGEN AT 4 LPM VIA NASAL CANNULA WITH no S/S of distress/SOB or pain. BED IN LOWEST, LOCKED POSITION WITH SIDERAILS UP x2 AND CALL LIGHT WITHIN REACH. Instructed on POC and to call for assist PRN, will continue to monitor for changes Q1hr and PRN.
[2019-09-22 09:00] VITALS: BP 121/76
[2019-09-22] MEDS: hydrALAZINE HCL 25 MG TAB PO SCH ×2 (10:00→21:23)
[2019-09-22] MEDS: METOPROLOL SUCCINATE XL 50 MG TAB PO SCH (10:00)
[2019-09-22] MEDS: ENALAPRIL MALEATE 2.5 MG TAB PO SCH (10:00)
[2019-09-22] MEDS ORDERED: ENOXAPARIN SOD 40 MG/0.4 ML SYRINGE SC SCH (10:00)
[2019-09-22] MEDS ORDERED: FUROSEMIDE 40 MG/4 ML VIAL IV SCH (10:00)
[2019-09-22] MEDS: LEVOFLOXACIN 250MG 50 ML IV SCH (10:18)
[2019-09-22] MEDS: FAMOTIDINE 20 MG TAB PO SCH (10:19)
[2019-09-22] MEDS: RIVAROXABAN 15 MG TAB PO SCH (10:19)
[2019-09-22] MEDS: POTASSIUM CHL 20 Meq TABLET PO SCH (10:19)
[2019-09-22] MEDS: ASPirin 81 mg TAB PO SCH (10:19)
[2019-09-22] MEDS: LEVOTHYROXINE SODIUM 25 MCG TAB PO SCH (10:20)
[2019-09-22] MEDS: LOSARTAN POTASSIUM 50 MG TAB PO SCH (10:20)
[2019-09-22] MEDS: amLODIPine BESYLATE 5 MG TAB PO SCH (10:21)
--- NOTE | 2019-09-22 12:19 | NUR ---
DR. Gian SHOOK AT BEDSIDE.
[2019-09-22 13:00] VITALS: BP 104/72
--- NOTE | 2019-09-22 16:32 | NUR ---
assessment Patient is a 84 year old female who is alert and oriented. Prior to admission patient lived home alone and function with assistance from her caregiver and her daughter. Patient has a fww, rollator, 02 at night only. Patients PCP is Dr Garcia. Patient informed me she is on service with [facility]. Patient has an advanced directive and her daughter Ana María is her POA. I informed patient of her consult for SNF. Patient agrees to SNF. Patient verbalized understanding and agreed to discharge plan. Addendum: 09/22/19 at 1633 by Alida ROACH Amended: Links added.
--- NOTE | 2019-09-22 19:30 | NUR ---
OPENING NOTE REPORT RECEIVED FROM DAY SHIFT RN PATIENT IS A/OX4 RESTING IN BED. PATIENT IS RECEIVING BREATHING TREATMENT AT THIS TIME, O2 SATURATION AT 93%. NO S/S OF DISTRESS NOTED. POC DISCUSSED, QUESTIONS ANSWERED. WILL MONITOR Q1H PRN THROUGHOUT SHIFT. FALL PRECAUTIONS IN PLACE, CALL LIGHT WITHIN REACH.
[2019-09-22] MEDS: FUROSEMIDE 40 MG/4 ML VIAL IV SCH (21:22)
[2019-09-22] MEDS: BACLOFEN 10 MG TAB PO SCH (21:23)
[2019-09-22 22:00] VITALS: BP 124/87
[2019-09-23 05:00] VITALS: BP 121/91
[2019-09-23] MEDS: ALPRAZolam 0.5 MG TAB PO SCH ×3 (06:00→22:22)
[2019-09-23] MEDS: SODIUM CHLOR 0.9% PF (SALINE LOCK) 10ML VIAL/SYR IV SCH ×3 (06:23→22:21)
[2019-09-23] MEDS: FUROSEMIDE 40 MG/4 ML VIAL IV SCH ×2 (06:23→18:00)
[2019-09-23] MEDS: IPRATROPIUM BROM 0.5 MG/2.5ML INH SOL NEB SCH ×3 (06:45→19:12)
[2019-09-23] MEDS: ALBUTEROL SULF 2.5 MG/0.5ML(0.5%) NEB SOLN NEB SCH ×3 (06:45→19:12)
--- NOTE | 2019-09-23 06:45 | NUR ---
PATIENT FOUND WITH NASAL CANNULA REMOVED FROM NOSE AND WITH SPO2 AT 85-87%. PATIENT UNSURE HOW LONG SHE HAS HAD NASAL CANNULA OUT. SHE WAS EDUCATED ON THE IMPORTANCE OF KEEPING IT ON AND INSTRUCTED TO DO SO. SHE WAS IN AGREEMENT.
--- NOTE | 2019-09-23 07:04 | NUR ---
CLOSING PATIENT RESTING IN BED. RT AT BEDSIDE WITH BREATH TREATMENT IN PROGRESS. PATIENT STABLE AT THIS TIME. CALL LIGHT WITHIN REACH WILL ENDORSE CARE TO AM SHIFT RN
[2019-09-23 08:52] VITALS: BP 97/68
[2019-09-23] MEDS: amLODIPine BESYLATE 5 MG TAB PO SCH (10:00)
[2019-09-23] MEDS: hydrALAZINE HCL 25 MG TAB PO SCH ×2 (10:00→22:00)
[2019-09-23] MEDS: LOSARTAN POTASSIUM 50 MG TAB PO SCH (10:00)
[2019-09-23] MEDS: ENALAPRIL MALEATE 2.5 MG TAB PO SCH (10:00)
[2019-09-23] MEDS ORDERED: PNEUMOCOCCAL VACC POLYS 25 MCG/0.5 ML VIAL IM ONE (10:00)
[2019-09-23] MEDS ORDERED: INFLUENZA QUAD 2019-2020 0.5ml SYRG IM ONE (10:00)
[2019-09-23] MEDS: METOPROLOL SUCCINATE XL 50 MG TAB PO SCH (10:00)
[2019-09-23] MEDS: LEVOTHYROXINE SODIUM 25 MCG TAB PO SCH (10:05)
[2019-09-23] MEDS: RIVAROXABAN 15 MG TAB PO SCH (10:05)
[2019-09-23] MEDS: FAMOTIDINE 20 MG TAB PO SCH (10:05)
[2019-09-23] MEDS: LEVOFLOXACIN 250MG 50 ML IV SCH (10:06)
[2019-09-23] MEDS: POTASSIUM CHL 20 Meq TABLET PO SCH (10:06)
[2019-09-23] MEDS: ASPirin 81 mg TAB PO SCH (10:06)
--- NOTE | 2019-09-23 10:36 | NUR ---
Discharge planning per SS consult, patient has orders for SNF placement on discharge. Referral sent to [facility] and [facility]. Placed a follow up call to [facility], spoke with Jm and was advised that he will review patient, run insurance and call me back.
--- NOTE | 2019-09-23 12:28 | NUR ---
Received a call back from [facility] [phone], and was advised by Jm that they will accept this patient on dc. No bed available until patient is ready for discharge. Transportation is set up for will call with [phone], spoke with Nathaniel at [facility] to set up call request. Addendum: 09/23/19 at 1239 by ERLINDA HELMS SS Amended: Links added.
[2019-09-23 13:19] VITALS: BP 109/79
[2019-09-23 17:07] VITALS: BP 104/59
--- NOTE | 2019-09-23 19:13 | NUR ---
RT NOTE PT REFUSED TX AT THIS TIME. PT STATED THEY WERE HUNGRY AND JUST WANTED TO EAT. PT DENIES ANY SOB,NO SIGNS OF RESP DISTRESS NOTED BY RT. SPO2 93% ON 3LPM NC, RR 16, CR 84. TX HELD PER PT REQUEST.
--- NOTE | 2019-09-23 19:15 | NUR ---
Opening Shift Note: Assumed care of patient, awake and alert. No S/S of distress/SOB or pain. Bed in lowest locked position, side rails up x2, call light within reach. Patient instructed on POC and to call for assist PRN, will continue to monitor for changes Q1hr and PRN. Signed: 09/24/19 at 604 by GILMER QUIROS SN <Co-Signature Required> Co-Signed: 09/24/19 at 604 by Babs Jane RN
[2019-09-23 22:00] VITALS: BP 115/72
[2019-09-23] MEDS: BACLOFEN 10 MG TAB PO SCH (22:00)
[2019-09-24 05:00] VITALS: BP 131/87
[2019-09-24] MEDS: ALPRAZolam 0.5 MG TAB PO SCH ×2 (06:00→14:00)
[2019-09-24] MEDS: ALBUTEROL SULF 2.5 MG/0.5ML(0.5%) NEB SOLN NEB SCH ×4 (06:07→18:33)
[2019-09-24] MEDS: IPRATROPIUM BROM 0.5 MG/2.5ML INH SOL NEB SCH ×4 (06:07→18:33)
[2019-09-24] MEDS: SODIUM CHLOR 0.9% PF (SALINE LOCK) 10ML VIAL/SYR IV SCH ×3 (06:22→22:01)
[2019-09-24] MEDS: FUROSEMIDE 40 MG/4 ML VIAL IV SCH ×2 (06:22→17:24)
[2019-09-24 08:00] VITALS: BP 131/87
--- NOTE | 2019-09-24 08:00 | NUR ---
ASSESSMENT NOTE PT IS ALERT ORIENTED X4, RESTING IN BED COMFORTABLY, VERY FRAIL, ABLE TO VERBALIS HER NEEDS AND SELF REPOSITION, GENERALIS WEAKNESS NOTED, FALL RISK PRECAUTIONS, BED ALARM ACTIVATED, CALL LIGHT WITHIN REACH.
[2019-09-24 09:00] VITALS: BP 114/77
[2019-09-24] MEDS: LEVOFLOXACIN 250MG 50 ML IV SCH (09:00)
[2019-09-24] MEDS: amLODIPine BESYLATE 5 MG TAB PO SCH (09:01)
[2019-09-24] MEDS: RIVAROXABAN 15 MG TAB PO SCH (09:01)
[2019-09-24] MEDS: FAMOTIDINE 20 MG TAB PO SCH (09:02)
[2019-09-24] MEDS: LEVOTHYROXINE SODIUM 25 MCG TAB PO SCH (09:02)
[2019-09-24] MEDS: ASPirin 81 mg TAB PO SCH (09:03)
--- NOTE | 2019-09-24 09:30 | NUR ---
DR SHOOK AT BED SIDE FOLLOWING UP ON PT, INFORM PT WITH THE DISCHARGE PAINING TO SNF TOMORROW AND FOLLOWING UP ON THE ECHO RESULTS
[2019-09-24] MEDS: ENALAPRIL MALEATE 2.5 MG TAB PO SCH (10:00)
[2019-09-24] MEDS: LOSARTAN POTASSIUM 50 MG TAB PO SCH (10:00)
[2019-09-24] MEDS: hydrALAZINE HCL 25 MG TAB PO SCH ×2 (10:00→22:00)
[2019-09-24] MEDS: POTASSIUM CHL 20 Meq TABLET PO SCH (10:00)
[2019-09-24] MEDS: METOPROLOL SUCCINATE XL 50 MG TAB PO SCH (10:00)
--- NOTE | 2019-09-24 11:30 | NUR ---
FAMILY PATIENT'S DAUGHTER AT BED SIDE ASSISTING HER MOM WITH THE MORNING CARE
--- NOTE | 2019-09-24 11:44 | NUR ---
Received a page from Jm from [facility] . Followed up call to Jm. Per Jm patient has been accepted to room [address] Mcgrath.
[2019-09-24 13:00] VITALS: BP 103/79
--- NOTE | 2019-09-24 15:30 | NUR ---
FAMILY LEFT HOME, PT CONTINUE STABLE, RESTING COMFORTABLY
[2019-09-24 17:00] VITALS: BP 111/69
--- NOTE | 2019-09-24 18:40 | NUR ---
PT IS RESTING IN BED COMFORTABLY NO DISTRESS NOTED, CONTINUE MONITORING
--- NOTE | 2019-09-24 19:20 | NUR ---
Opening Shift Note Received report from Radha RUSS. Assumed care of patient, awake and alert. No S/S of distress/SOB or pain. Instructed on POC and to call for assist PRN. Fall precaution measures in place, will continue to monitor for changes Q1hr and PRN.
[2019-09-24 22:00] VITALS: BP 98/43
[2019-09-24] MEDS: BACLOFEN 10 MG TAB PO SCH (22:00)
[2019-09-24] MEDS: ALPRAZolam 0.5 MG TAB PO PRN (22:02)
[2019-09-25] MEDS: ALBUTEROL SULF 2.5 MG/0.5ML(0.5%) NEB SOLN NEB SCH ×4 (00:23→18:36)
[2019-09-25] MEDS: IPRATROPIUM BROM 0.5 MG/2.5ML INH SOL NEB SCH ×4 (00:24→18:36)
[2019-09-25 01:20] VITALS: BP 98/43
[2019-09-25 05:00] VITALS: BP 118/91
[2019-09-25] MEDS: SODIUM CHLOR 0.9% PF (SALINE LOCK) 10ML VIAL/SYR IV SCH ×3 (06:15→22:00)
[2019-09-25] MEDS: FUROSEMIDE 40 MG/4 ML VIAL IV SCH ×2 (06:15→18:00)
--- NOTE | 2019-09-25 06:35 | NUR ---
Respiratory note: TOOK PT OFF BIPAP PER PT'S REQUEST. PLACED ON 3L NC. HR 85, RR 26, POX 99%. NO S/S OF RESPIRATORY DISTRESS. NOC SHIFT RN AT BEDSIDE AND AWARE OF CHANGES.
[2019-09-25] MEDS: LEVOTHYROXINE SODIUM 25 MCG TAB PO SCH (06:40)
[2019-09-25 09:00] VITALS: BP 117/76
[2019-09-25] MEDS: POTASSIUM CHL 20 Meq TABLET PO SCH (09:44)
[2019-09-25] MEDS: LEVOFLOXACIN 250MG 50 ML IV SCH (09:44)
[2019-09-25] MEDS: ASPirin 81 mg TAB PO SCH (09:44)
[2019-09-25] MEDS: amLODIPine BESYLATE 5 MG TAB PO SCH (09:45)
[2019-09-25] MEDS: FAMOTIDINE 20 MG TAB PO SCH (09:45)
[2019-09-25] MEDS: ENALAPRIL MALEATE 2.5 MG TAB PO SCH (09:45)
[2019-09-25] MEDS: hydrALAZINE HCL 25 MG TAB PO SCH ×2 (09:46→22:00)
[2019-09-25] MEDS: METOPROLOL SUCCINATE XL 50 MG TAB PO SCH (09:46)
[2019-09-25] MEDS: LOSARTAN POTASSIUM 50 MG TAB PO SCH (09:47)
[2019-09-25 13:00] VITALS: BP 94/66
--- NOTE | 2019-09-25 14:39 | NUR ---
Discharge planning per consult, patient has orders to dc to SNF. [facility] at [address] [place] [address] ([phone]) has accepted patient into room [address]grath. Transportation has been arranged with [facility] [phone] and the scheduled hand picker time is for 1800. Nurse Acosta was advised of dc plan. Addendum: 09/25/19 at 1442 by ERLINDA HELMS Amended: Links added.
[2019-09-25 17:00] VITALS: BP_SYST 86; BP_SYST 91; BP_DIAS 58; BP_DIAS 60
[2019-09-25] MEDS ORDERED: RIVAROXABAN 15 MG TAB PO SCH (18:00)
--- NOTE | 2019-09-25 18:13 | NUR ---
[facility] ELOCUTION TEACHER [facility] FOR PICKUP REPORT GIVEN. DISPATCH FOR [facility] NOTIFIED PERSONNEL PATIENT CAN'T BE TRANSPORTED WITH B/P OF 91/60. NOTIFIED [facility] PERSONNEL B/P IS PATIENTS BASELINE. [facility] PERSONNEL STATED CAN'T TRANSPORT PATIENT WITH SBP <100. JEB HURTADO ASSISTING PRIMARY RN, CALLED [facility] DISPATCH REINFORCING PATIENT'S B/P IS BASELINE. SPOKE WITH PATI, STATES "SHE WILL NOTIFY RN OF RESULTS FOR TRANSPORTATION." AWAITING RETURN CALL
--- NOTE | 2019-09-25 18:27 | NUR ---
CONSUELO SPOKE WITH DON, FROM [facility]. DON AWARE OF PATIENT'S B/P BASELINE. PER DON, [facility] GENERAL DENTIST/OWNER WILL BE ASSESSING THE SITUATION DUE TO CONFLICTING INFORMATION. WILL CONTINUE TO MONITOR
--- NOTE | 2019-09-25 18:45 | NUR ---
CONSUELO CORDERO COMPLIANCE LEAD VERNON BALBUENA ASSESSING PATIENT'S STATUS. VERNON AWARE OF PATIENT'S BASELINE B/P. PER VERNON, PATIENT B/P STABLE FOR TRANSPORT. WAITING FOR ALS TRANSPORT.
--- NOTE | 2019-09-25 19:40 | NUR ---
Opening Shift Note Assumed care of patient, awake and alert, oriented x 4. On oxygen at 3L via NC with even and unlabored respirations, no S/S of distress or SOB. IV intact and patent. Patient turns independently in bed, sacrum intact, no redness noted. Bed low locked position with side rails up x 2 and call light within reach. Instructed on POC for dis and to call for assist PRN, will continue to monitor for changes Q1hr and PRN.
--- NOTE | 2019-09-25 21:07 | NUR ---
Report updated [facility], spoke with machine records units supervisor Prema, reports there is no admission for this patient , states she will call back in 10 minutes to verify details. Awaiting call back.
--- NOTE | 2019-09-25 21:08 | NUR ---
Discharge instructions given as ordered. All questions and concerns addressed. Patient verbalized understanding. IV removed with catheter intact, pressure dressing applied. Medication reconciliation form completed and copy given to patient. Telemetry unit returned to ICU. Patient transported by [facility] with all personal belongings. No distress noted at time of departure.
--- NOTE | 2019-09-25 21:30 | NUR ---
Received call back from Prema at [facility] Spoke with Prema, she notified me there is no admission for the patient, no bed, unable to accept the patient. Will notify storage battery charger Donna.
--- NOTE | 2019-09-25 21:49 | NUR ---
DISCHARGE HELD: Spoke with Jm at [facility] and was notified that pt had bed assignment yesterday (09/24), however Jm stated that he was notified that no discharge order had yet been placed. He stated that he was not notified today (09/25) that the pt now had a discharge order and was now coming to their facility, therefore no bed is available at this time. Pt returning to our facility as they are unable to accept pt tonight. Jm states a bed will be available tomorrow morning.
[2019-09-25] MEDS: BACLOFEN 10 MG TAB PO SCH (22:00)
--- NOTE | 2019-09-25 23:35 | NUR ---
patient returned to room via [facility]. patient lying in bed awake and oriented, on 3L via NC, even and unlabored respiration, no s/s of distress. Bed low locked position with side rails up x 2 and call light within reach. Instructed patient on POC and to call for assistance PRN, will continue care.
--- NOTE | 2019-09-25 23:45 | NUR ---
Family updated patient reports she already called her daughter to notify her of discharge held, returned to [facility].
[2019-09-25] MEDS: ALPRAZolam 0.5 MG TAB PO PRN (23:52)
[2019-09-26] MEDS: IPRATROPIUM BROM 0.5 MG/2.5ML INH SOL NEB SCH ×3 (01:01→11:18)
[2019-09-26] MEDS: ALBUTEROL SULF 2.5 MG/0.5ML(0.5%) NEB SOLN NEB SCH ×3 (01:01→11:18)
[2019-09-26 05:00] VITALS: BP 103/72
[2019-09-26] MEDS: SODIUM CHLOR 0.9% PF (SALINE LOCK) 10ML VIAL/SYR IV SCH ×2 (05:25→13:56)
[2019-09-26] MEDS: FUROSEMIDE 40 MG/4 ML VIAL IV SCH (05:25)
--- NOTE | 2019-09-26 07:00 | NUR ---
Called [facility] for update spoke with Adilia, she states admission is not available until [id number].
--- NOTE | 2019-09-26 07:04 | NUR ---
Family Updated spoke with Ana María, updated on patient status and conditions, all questions and concerns addressed.
--- NOTE | 2019-09-26 07:06 | NUR ---
Closing Note patient resting in bed with eyes closed, cpap on, even and unlabored respirations, no s/s of distress. Bed low locked position with side rails up x 2 and call light within reach. Endorsed care to day shift RN.
[2019-09-26] MEDS: LEVOTHYROXINE SODIUM 25 MCG TAB PO SCH (07:16)
--- NOTE | 2019-09-26 07:40 | NUR ---
Patient in bed, awake, oriented x4, no acute distress noted. IV inserted by the mold shifter RN.
--- NOTE | 2019-09-26 07:40 | NUR ---
Patient has pending transfer to [facility] as per report from topper press operator RN. Patient has no IV access.
--- NOTE | 2019-09-26 08:53 | NUR ---
Gian Bowles at bedside. ordered to follow up with SNF transfer.
[2019-09-26 09:00] VITALS: BP 98/71
[2019-09-26] MEDS: hydrALAZINE HCL 25 MG TAB PO SCH (10:00)
[2019-09-26] MEDS: ENALAPRIL MALEATE 2.5 MG TAB PO SCH (10:00)
[2019-09-26] MEDS: METOPROLOL SUCCINATE XL 50 MG TAB PO SCH (10:00)
[2019-09-26] MEDS: LOSARTAN POTASSIUM 50 MG TAB PO SCH (10:00)
--- NOTE | 2019-09-26 10:05 | NUR ---
Design Chief Germaine called. Germaine made aware patient's daughter asked if patient can be [id number] to [facility] instead.
[2019-09-26] MEDS: LEVOFLOXACIN 250MG 50 ML IV SCH (10:28)
[2019-09-26] MEDS: POTASSIUM CHL 20 Meq TABLET PO SCH (10:29)
[2019-09-26] MEDS: ASPirin 81 mg TAB PO SCH (10:29)
[2019-09-26] MEDS: amLODIPine BESYLATE 5 MG TAB PO SCH (10:30)
[2019-09-26] MEDS: FAMOTIDINE 20 MG TAB PO SCH (10:30)
--- NOTE | 2019-09-26 11:50 | NUR ---
Jm from [facility] called back. Jm wants to speak with Glaze Mixer Germaine. Jm talking on the phone with Germaine. Germaine said she will call me back for update regarding patient's transfer. Daughter requested patient be transferred to [facility].
[2019-09-26 13:00] VITALS: BP 97/66
--- NOTE | 2019-09-26 15:06 | NUR ---
Tie Presser Germaine called back that patient got accepted at [facility], milk pickup truck driver time between 4:30 pm to 5:00 pm today via [facility]. Patient and daughter made aware.
--- NOTE | 2019-09-26 15:24 | NUR ---
Discharge planning per consult, patient is now going to [facility] [phone] as per request ( no beds available at original discharge order to SNF) to room [address] Borja. Transportation was arranged with the General [phone] and scheduled berry picker time is between 4:30-5:30pm. Nurse Camacho was advised of dc plan. Addendum: 09/26/19 at 1526 by ERLINDA HELMS Amended: Links added.
--- NOTE | 2019-09-26 16:00 | NUR ---
Reported to Stacy of [facility] that patient has decreased blood pressure.
--- NOTE | 2019-09-26 16:00 | NUR ---
Called [facility] ([facility] P# [phone]. Report given to Stacy, picker packer time between 4:30 pm to 5:30 pm today via [facility].
[2019-09-26 16:45] VITALS: BP 107/70
--- NOTE | 2019-09-26 16:55 | NUR ---
For transfer to [facility]. Discharge instructions given as ordered. Encourage to follow up with PMD as instructed. All questions and concerns addressed. Patient verbalized understanding. Medication reconciliation form completed and copy given to patient. IV removed with catheter intact, pressure dressing applied. Telemetry unit returned to ICU. Patient taken to vehicle via gurney with all personal belongings, accompanied by [facility] Transport [facility] personnel and family member. No distress noted at time of departure.
== END 2019-09-26 16:47 | DRG 291 ==
LOC: ER 12:07 → TELE 12:08 → TELE-EAST 21:18
PROVIDERS: ADMIT Internal Medicine; ATTEND Family Medicine
PROC: 5A09357 Assistance with Respiratory Ventilation, Less than 24 Consecutive Hours, Continuous Positive Airway Pressure (ICD-10-PCS; principal; 2019-09-24)
PROC: 5A09357 Assistance with Respiratory Ventilation, Less than 24 Consecutive Hours, Continuous Positive Airway Pressure (ICD-10-PCS; 2019-09-25)
PROC: 5A09357 Assistance with Respiratory Ventilation, Less than 24 Consecutive Hours, Continuous Positive Airway Pressure (ICD-10-PCS; 2019-09-26)
DX: I11.0 Hypertensive heart disease with heart failure (principal); J18.1 Lobar pneumonia, unspecified organism; J96.20 Acute and chronic respiratory failure, unspecified whether with hypoxia or hypercapnia; J90 Pleural effusion, not elsewhere classified; J44.1 Chronic obstructive pulmonary disease with (acute) exacerbation; I48.20 Chronic atrial fibrillation, unspecified; J44.0 Chronic obstructive pulmonary disease with (acute) lower respiratory infection; I50.43 Acute on chronic combined systolic (congestive) and diastolic (congestive) heart failure; Z88.6 Allergy status to analgesic agent; Z88.3 Allergy status to other anti-infective agents; Z91.012 Allergy to eggs; E78.00 Pure hypercholesterolemia, unspecified; F41.9 Anxiety disorder, unspecified; G47.30 Sleep apnea, unspecified; I27.20 Pulmonary hypertension, unspecified; Z79.01 Long term (current) use of anticoagulants; Z80.9 Family history of malignant neoplasm, unspecified; Z82.61 Family history of arthritis; Z82.62 Family history of osteoporosis; Z99.81 Dependence on supplemental oxygen
CPT/HCPCS: 36415; 71046; 80053; 81001; 82550; 82565; 83735; 83880; 84484; 85025; 87804; 93005; 93306; 94640; 94660; 96374; 99291; G0378

== ENCOUNTER 2020-11-19 12:45 | Inpatient (IN) | payer MEDICARE, BC ==
[~2020-11-19] VITALS: Ht 121.9 cm; Wt 50.8 kg
[~2020-11-19 12:45] MED LIST changes: +AMLO-489 PO; -AMLO5TAB15 PO; -BACL10TA PO; -BUTA1CAP6 PO; -DICL50TA4 PO; +LEV75T PO; -LEVO75TA50 PO
[2020-11-19] MEDS ORDERED: cefTRIAXone 1GM/50ML D5W 50 ML IV ONE (13:15)
[2020-11-19] MEDS ORDERED: DexAMETHasone SOD PHOS 10MG/1ML VIAL INJ IV ONE (13:15)
[2020-11-19 14:51] LABS: Basophils # (auto) 0 10 ^3/uL (0-0.2); Basophils % (auto) 0.1 % (0.0-2.0); Eosinophils # (auto) 0 10 ^3/uL (0-0.8); Hematocrit 42.6 % (36.0-46.0); Hemoglobin 14.4 g/dL (12.2-16.2); Lymphocytes # (auto) 0.3 10 ^3/uL (0.4-5.4); Lymphocytes % (auto) 3.3 % (10.0-50.0); Mean Corpuscular Hemoglobin 33.1 pg (28.0-32.0); Mean Corpuscular Hgb Conc. 33.8 g/dL (32.0-36.0); Mean Corpuscular Volume 97.8 fL (80.0-100.0); Monocytes % (auto) 10.7 % (0.0-12.0); Neutrophils # (auto) 7.7 10 ^3/uL (1.6-8.6); Neutrophils % (auto) 85.9 % (37.0-80.0); Nucleated Red Blood Cells % 0.8 %; Platelet Count (auto) 211 10^3/uL (140-450); Red Blood Cells 4.35 10^6/uL (4.0-5.20); Red Cell Distribution Width 15.4 % (11.8-14.3)
[2020-11-19 15:15] LABS: Potassium 3.3 mmol/L (3.5-5.1)
[2020-11-19 15:32] LABS: Albumin 2.7 g/dL (3.4-5.0); BUN/Creatinine Ratio 36.3; Bilirubin, Total 1.2 mg/dL (0.2-1.0); CRP High Sensitivity 8.94 mg/dL (< 0.3); Calcium 8.3 mg/dL (8.5-10.1); Total Protein 6.4 g/dL (6.4-8.2)
[2020-11-19 15:34] LABS: INR 1.43 (0.9-1.15); Partial Thromboplastin Time 34.9 sec (23.0-31.2)
[2020-11-19 16:22] LABS: Urine Bacteria NONE SEEN /hpf (None Seen); Urine Blood Negative /uL (Negative); Urine Specific Gravity 1.015 (1.001-1.035); Urine WBC 1 /hpf (0 - 5)
[2020-11-19] MEDS ORDERED: NITROGLYCERIN 0.4 MG SL TAB SL PRN ×3 (18:15→19:00)
[2020-11-19] MEDS ORDERED: MORPHINE SULF INJ 2 MG/ML SYRINGE 1ML IV PRN ×2 (18:15→19:00)
[2020-11-19] MEDS ORDERED: POTASSIUM CHL 20 Meq TABLET PO ONE (18:45)
[2020-11-19] MEDS ORDERED: AMLO-483 PO (18:52)
[2020-11-19] MEDS ORDERED: FLUT1SPR5 (18:53)
[2020-11-19] MEDS ORDERED: POTA-180 PO (18:54)
[2020-11-19] MEDS ORDERED: TIOT1AER2 IN (18:55)
[2020-11-19] MEDS ORDERED: OMEP-260 PO (18:56)
[2020-11-19] MEDS ORDERED: FAMO-12 PO (18:56)
[2020-11-19] MEDS ORDERED: FURO40TA4 PO (18:56)
[2020-11-19] MEDS ORDERED: SODIUM CHLORIDE 0.9% 1,000 ML IV SCH (19:00)
[2020-11-19] MEDS ORDERED: levoFLOXacin 500MG 100 ML IV SCH (19:00)
[2020-11-19] MEDS ORDERED: ACETAMINOPHEN 500 MG TAB PO PRN (19:00)
[2020-11-19] MEDS ORDERED: METOPROLOL TARTRATE 25 MG TAB PO ONE (19:00)
[2020-11-19] MEDS ORDERED: ATORVASTATIN 20 MG TAB PO ONE (19:00)
[2020-11-19] MEDS ORDERED: ALBUMIN 25% 100 ML IV ONE (19:00)
[2020-11-19] MEDS ORDERED: ALBUTEROL SULF HFA 90MCG INH 200DOSE IN PRN (19:00)
[2020-11-19] MEDS ORDERED: HYDROcodone-ACET 5/325MG TAB PO PRN (19:00)
[2020-11-19] MEDS ORDERED: ALUM & MAG HYDROX-SIMETH LIQ(MAALOX) 30 ML PO ONE (19:00)
[2020-11-19] MEDS ORDERED: LORazepam 0.5 MG TAB PO PRN (19:00)
[2020-11-19] MEDS ORDERED: FUROSEMIDE 100 MG/10ML VIAL IV ONE (19:00)
[2020-11-19] MEDS ORDERED: ONDANSETRON HCL 4 MG/2 ML VIAL IV PRN (19:00)
[2020-11-19] MEDS ORDERED: BUDESONIDE (INHALATION) 180 MCG IH IN SCH (22:00)
[2020-11-19] MEDS ORDERED: ENOXAPARIN SOD 60 MG/0.6 ML SYRINGE SC SCH (22:00)
[2020-11-19 22:05] VITALS: BP 110/85
[2020-11-19] MEDS: ALBUTEROL SULF 2.5 MG/0.5ML(0.5%) NEB SOLN NEB SCH (23:10)
[2020-11-19] MEDS: BUDESONIDE (INHALATION) 0.5 MG/2 ML NEB NEB SCH (23:10)
[2020-11-20] MEDS: DOXYCYCLINE 100MG/250ML 250 ML IV SCH ×2 (01:05→09:58)
[2020-11-20] MEDS ORDERED: levoFLOXacin 250MG 50 ML IV SCH ×2 (02:00→19:00)
[2020-11-20] MEDS ORDERED: ALBUMIN 25% 100 ML IV SCH (03:00)
[2020-11-20] MEDS: levoFLOXacin 250MG 50 ML IV SCH (04:05)
[2020-11-20 05:00] VITALS: BP 119/85
[2020-11-20] MEDS ORDERED: FUROSEMIDE 20 MG/2 ML VIAL IV SCH (06:00)
[2020-11-20] MEDS: BUDESONIDE (INHALATION) 0.5 MG/2 ML NEB NEB SCH (06:59)
[2020-11-20] MEDS: ALBUTEROL SULF 2.5 MG/0.5ML(0.5%) NEB SOLN NEB SCH (06:59)
[2020-11-20 07:04] LABS: Basophils # (auto) 0 10 ^3/uL (0-0.2); Eosinophils # (auto) 0 10 ^3/uL (0-0.8); Hematocrit 41.2 % (36.0-46.0); Hemoglobin 13.5 g/dL (12.2-16.2); Lymphocytes # (auto) 0.4 10 ^3/uL (0.4-5.4); Lymphocytes % (auto) 4.6 % (10.0-50.0); Mean Corpuscular Hemoglobin 32.1 pg (28.0-32.0); Mean Corpuscular Hgb Conc. 32.8 g/dL (32.0-36.0); Mean Corpuscular Volume 97.9 fL (80.0-100.0); Monocytes % (auto) 11.2 % (0.0-12.0); Neutrophils # (auto) 7.3 10 ^3/uL (1.6-8.6); Neutrophils % (auto) 84.2 % (37.0-80.0); Nucleated Red Blood Cells % 0.6 %; Platelet Count (auto) 209 10^3/uL (140-450); Red Blood Cells 4.21 10^6/uL (4.0-5.20); Red Cell Distribution Width 14.9 % (11.8-14.3); White Blood Cell 8.6 10^3/uL (4.4-10.8)
[2020-11-20 07:24] LABS: INR 1.56 (0.9-1.15); Partial Thromboplastin Time 46.4 sec (23.0-31.2)
[2020-11-20 07:37] LABS: Potassium 3.5 mmol/L (3.5-5.1)
[2020-11-20 08:00] VITALS: BP 118/90
[2020-11-20 08:02] LABS: Albumin 2.8 g/dL (3.4-5.0); BUN/Creatinine Ratio 32.4; Calcium 8.2 mg/dL (8.5-10.1); Magnesium 2.6 mg/dL (1.6-2.6); Phosphorus 3.1 mg/dL (2.5-4.90); Total Protein 6.4 g/dL (6.4-8.2)
[2020-11-20] MEDS ORDERED: LEVOTHYROXINE SODIUM 25 MCG TAB PO ONE (09:15)
[2020-11-20] MEDS: FAMOTIDINE (10MG/ML) 2ML VL IV SCH (09:58)
[2020-11-20] MEDS: ASPirin 81 mg TAB PO SCH (09:58)
[2020-11-20] MEDS ORDERED: LISINOPRIL 5 MG TAB PO SCH (10:00)
[2020-11-20] MEDS ORDERED: DexAMETHasone SOD PHOS 10MG/1ML VIAL INJ IV SCH (10:00)
[2020-11-20] MEDS ORDERED: ZINC SULFATE 220mg CAP or TAB PO SCH (10:00)
[2020-11-20] MEDS ORDERED: ENOXAPARIN SOD 60 MG/0.6 ML SYRINGE SC SCH (10:00)
[2020-11-20] MEDS ORDERED: RIVAROXABAN 15 MG TAB PO SCH ×2 (10:00→18:00)
[2020-11-20] MEDS ORDERED: METOPROLOL SUCCINATE XL 50 MG TAB PO SCH (10:00)
[2020-11-20] MEDS ORDERED: ASCORBIC ACID 1,000 MG TAB PO SCH (10:00)
[2020-11-20] MEDS ORDERED: METOPROLOL TARTRATE 25 MG TAB PO SCH (10:00)
[2020-11-20] MEDS ORDERED: CHOLECALCIFEROL (VITD3) 2,000 UNIT CAP/TAB PO SCH (10:00)
[2020-11-20] MEDS ORDERED: FAMOTIDINE (10MG/ML) 2ML VL IV SCH (10:00)
[2020-11-20] MEDS: DOCUSATE SOD 100 MG CAP PO SCH (10:02)
[2020-11-20] MEDS: hydrALAZINE HCL 25 MG TAB PO SCH ×2 (10:16→21:52)
[2020-11-20] MEDS ORDERED: FUROSEMIDE 40 MG/4 ML VIAL IV ONE (11:30)
[2020-11-20 16:00] VITALS: BP 119/73
[2020-11-20] MEDS: SILDENAFIL CITRATE 20 MG TAB PO SCH (20:04)
[2020-11-20 22:00] VITALS: BP 108/74
[2020-11-20] MEDS ORDERED: ATORVASTATIN 20 MG TAB PO SCH (22:00)
[2020-11-21] MEDS: levoFLOXacin 250MG 50 ML IV SCH (02:13)
[2020-11-21] MEDS: BUDESONIDE (INHALATION) 0.5 MG/2 ML NEB NEB SCH ×3 (02:27→19:22)
[2020-11-21 04:59] VITALS: BP 114/65
[2020-11-21 05:02] VITALS: BP 114/65
[2020-11-21] MEDS ORDERED: LEVOTHYROXINE SODIUM 25 MCG TAB PO SCH (07:00)
[2020-11-21 08:00] VITALS: BP_SYST 105; BP_DIAS 50; BP_DIAS 52
[2020-11-21] MEDS: SILDENAFIL CITRATE 20 MG TAB PO SCH ×3 (08:00→20:00)
[2020-11-21] MEDS: FAMOTIDINE (10MG/ML) 2ML VL IV SCH (10:00)
[2020-11-21] MEDS ORDERED: methylPREDNISolone SOD SUCC 40 MG/ML VL IV ONE (10:30)
[2020-11-21] MEDS: ASPirin 81 mg TAB PO SCH (12:30)
[2020-11-21] MEDS: DOCUSATE SOD 100 MG CAP PO SCH (12:30)
[2020-11-21] MEDS ORDERED: HALOPERIDOL LACTATE 5 MG/ML INJ VIAL IM PRN (13:15)
[2020-11-21] MEDS: ALBUTEROL SULF 2.5 MG/0.5ML(0.5%) NEB SOLN NEB SCH ×3 (13:37→22:29)
[2020-11-21] MEDS: IPRATROPIUM BROM 0.5 MG/2.5ML INH SOL NEB SCH ×3 (13:37→22:29)
[2020-11-21] MEDS ORDERED: methylPREDNISolone SOD SUCC 40 MG/ML VL IV SCH (14:00)
[2020-11-21 14:39] VITALS: BP 108/79
[2020-11-21 16:00] VITALS: BP 115/77
[2020-11-21] MEDS: methylPREDNISolone SOD SUCC 40 MG/ML VL IV SCH (20:00)
[2020-11-21 21:23] VITALS: BP 101/52
[2020-11-22] MEDS: levoFLOXacin 250MG 50 ML IV SCH (02:12)
[2020-11-22] MEDS: IPRATROPIUM BROM 0.5 MG/2.5ML INH SOL NEB SCH ×6 (02:42→22:55)
[2020-11-22] MEDS: ALBUTEROL SULF 2.5 MG/0.5ML(0.5%) NEB SOLN NEB SCH ×6 (02:42→22:55)
[2020-11-22] MEDS: methylPREDNISolone SOD SUCC 40 MG/ML VL IV SCH ×2 (04:14→16:24)
[2020-11-22 05:03] VITALS: BP 115/72
[2020-11-22 07:49] VITALS: BP 112/82
[2020-11-22] MEDS: SILDENAFIL CITRATE 20 MG TAB PO SCH ×3 (08:28→20:25)
[2020-11-22] MEDS: BUDESONIDE (INHALATION) 0.5 MG/2 ML NEB NEB SCH ×2 (09:10→18:56)
[2020-11-22] MEDS: FAMOTIDINE (10MG/ML) 2ML VL IV SCH (09:45)
[2020-11-22 16:00] VITALS: BP 119/78
[2020-11-22] MEDS: RIVAROXABAN 15 MG TAB PO SCH (18:00)
[2020-11-22 22:00] VITALS: BP 103/46
[2020-11-23] VITALS: BP 111/68
[2020-11-23] MEDS: levoFLOXacin 250MG 50 ML IV SCH (02:00)
[2020-11-23] MEDS: ALBUTEROL SULF 2.5 MG/0.5ML(0.5%) NEB SOLN NEB SCH ×6 (03:06→22:45)
[2020-11-23] MEDS: IPRATROPIUM BROM 0.5 MG/2.5ML INH SOL NEB SCH ×6 (03:06→22:45)
[2020-11-23] MEDS: methylPREDNISolone SOD SUCC 40 MG/ML VL IV SCH ×2 (04:00→18:58)
[2020-11-23 05:00] VITALS: BP 119/72
[2020-11-23] MEDS: BUDESONIDE (INHALATION) 0.5 MG/2 ML NEB NEB SCH ×3 (06:25→22:45)
[2020-11-23 06:30] LABS: Basophils # (auto) 0 10 ^3/uL (0-0.2); Basophils % (auto) 0.1 % (0.0-2.0); Eosinophils # (auto) 0 10 ^3/uL (0-0.8); Hematocrit 39.3 % (36.0-46.0); Lymphocytes # (auto) 0.2 10 ^3/uL (0.4-5.4); Lymphocytes % (auto) 1.9 % (10.0-50.0); Mean Corpuscular Hemoglobin 32.1 pg (28.0-32.0); Mean Corpuscular Hgb Conc. 33.2 g/dL (32.0-36.0); Mean Corpuscular Volume 96.7 fL (80.0-100.0); Monocytes # (auto) 0.3 10 ^3/uL (0-1.3); Neutrophils # (auto) 7.5 10 ^3/uL (1.6-8.6); Nucleated Red Blood Cells % 0.1 %; Platelet Count (auto) 175 10^3/uL (140-450); Red Blood Cells 4.07 10^6/uL (4.0-5.20); Red Cell Distribution Width 14.8 % (11.8-14.3)
[2020-11-23] MEDS: LEVOTHYROXINE SODIUM 25 MCG TAB PO SCH (06:42)
[2020-11-23 06:56] LABS: Potassium 3.8 mmol/L (3.5-5.1)
[2020-11-23 07:06] LABS: Albumin 2.8 g/dL (3.4-5.0); BUN/Creatinine Ratio 37.7; Calcium 8.3 mg/dL (8.5-10.1); Total Protein 6.1 g/dL (6.4-8.2)
[2020-11-23 08:00] VITALS: BP 119/78
[2020-11-23] MEDS: FAMOTIDINE (10MG/ML) 2ML VL IV SCH (10:43)
[2020-11-23] MEDS: DOXYCYCLINE 100MG/250ML 250 ML IV SCH ×2 (10:43→21:39)
[2020-11-23] MEDS: SILDENAFIL CITRATE 20 MG TAB PO SCH ×3 (10:43→19:43)
[2020-11-23] MEDS ORDERED: CEFEPIME 1 GM in SODIUM CHL 0.9% 50 ML IV SCH (12:00)
[2020-11-23 16:00] VITALS: BP 112/76
[2020-11-23] MEDS ORDERED: QUEtiapine FUMARATE 25 MG TAB PO ONE (17:00)
[2020-11-23] MEDS: RIVAROXABAN 15 MG TAB PO SCH (17:44)
[2020-11-23] MEDS: QUEtiapine FUMARATE 25 MG TAB PO SCH (21:39)
[2020-11-23 21:52] VITALS: BP 104/60
[2020-11-24] VITALS: BP 133/90
[2020-11-24 00:46] VITALS: BP 135/90
[2020-11-24] MEDS ORDERED: METOPROLOL SUCCINATE XL 50 MG TAB PO ONE ×2 (02:00)
[2020-11-24] MEDS: ALBUTEROL SULF 2.5 MG/0.5ML(0.5%) NEB SOLN NEB SCH ×2 (02:31→08:38)
[2020-11-24] MEDS: IPRATROPIUM BROM 0.5 MG/2.5ML INH SOL NEB SCH ×2 (02:31→08:38)
[2020-11-24] MEDS: methylPREDNISolone SOD SUCC 40 MG/ML VL IV SCH (04:21)
[2020-11-24 04:36] VITALS: BP 136/96
[2020-11-24] MEDS: LEVOTHYROXINE SODIUM 25 MCG TAB PO SCH (06:33)
[2020-11-24 08:00] VITALS: BP 109/84
[2020-11-24] MEDS: SILDENAFIL CITRATE 20 MG TAB PO SCH (08:00)
[2020-11-24] MEDS: BUDESONIDE (INHALATION) 0.5 MG/2 ML NEB NEB SCH (08:38)
[2020-11-24] MEDS: QUEtiapine FUMARATE 25 MG TAB PO SCH (09:13)
[2020-11-24] MEDS: DOXYCYCLINE 100MG/250ML 250 ML IV SCH (09:13)
[2020-11-24] MEDS: FAMOTIDINE (10MG/ML) 2ML VL IV SCH (09:13)
[2020-11-24] MEDS ORDERED: HYDROmorphone HCL 2 MG/ML VL IV PRN (11:15)
[2020-11-24] MEDS ORDERED: LORazepam 2MG/ML-1ML VIAL IV PRN (11:45)
[2020-11-24] MEDS ORDERED: METOPROLOL SUCCINATE XL 50 MG TAB PO SCH (22:00)
== END 2020-11-24 15:21 | DRG 291 ==
LOC: ER 12:45 → EDBD 12:45 → TELE 19:07 → TELE-EAST 22:00
PROVIDERS: ADMIT Hospitalist; ATTEND Internal Medicine
DX: I13.0 Hypertensive heart and chronic kidney disease with heart failure and stage 1 through stage 4 chronic kidney disease, or unspecified chronic kidney disease (principal); I50.43 Acute on chronic combined systolic (congestive) and diastolic (congestive) heart failure; J18.9 Pneumonia, unspecified organism; J96.20 Acute and chronic respiratory failure, unspecified whether with hypoxia or hypercapnia; N17.0 Acute kidney failure with tubular necrosis; E43 Unspecified severe protein-calorie malnutrition; J81.0 Acute pulmonary edema; I48.19 Other persistent atrial fibrillation; D68.4 Acquired coagulation factor deficiency; J44.1 Chronic obstructive pulmonary disease with (acute) exacerbation; D68.59 Other primary thrombophilia; J44.0 Chronic obstructive pulmonary disease with (acute) lower respiratory infection; I48.92 Unspecified atrial flutter; Z68.42 Body mass index [BMI] 45.0-49.9, adult; Z66 Do not resuscitate; I27.20 Pulmonary hypertension, unspecified; F01.50 Vascular dementia, unspecified severity, without behavioral disturbance, psychotic disturbance, mood disturbance, and anxiety; N18.31 Chronic kidney disease, stage 3a; E78.5 Hyperlipidemia, unspecified; E89.0 Postprocedural hypothyroidism; M19.90 Unspecified osteoarthritis, unspecified site; R47.02 Dysphasia; Z20.822 Contact with and (suspected) exposure to COVID-19; G47.33 Obstructive sleep apnea (adult) (pediatric); R41.0 Disorientation, unspecified; R91.1 Solitary pulmonary nodule; Z51.5 Encounter for palliative care; Z79.01 Long term (current) use of anticoagulants; Z80.9 Family history of malignant neoplasm, unspecified; Z82.49 Family history of ischemic heart disease and other diseases of the circulatory system; Z82.61 Family history of arthritis; Z82.62 Family history of osteoporosis; Z83.3 Family history of diabetes mellitus; Z91.19 Patient's noncompliance with other medical treatment and regimen; Z86.73 Personal history of transient ischemic attack (TIA), and cerebral infarction without residual deficits
CPT/HCPCS: 36415; 36600; 70450; 71045; 80053; 81001; 82306; 82728; 82805; 83036; 83605; 83615; 83735; 83880; 84100; 84443; 84484; 85025; 85379; 85610; 85730; 86141; 87040; 87086; 87426; 92610; 93005; 93306; 94640; 99291; G0378; J0696; J1100; J3490; P9047